=== PATIENT | male | born 1995 | race African-American/Black ===

== ENCOUNTER 2017-08-23 18:09 | Emergency (ER) | payer OTHER ==
[~2017-08-23] VITALS: Ht 177.8 cm; Wt 93.2 kg
[2017-08-23 18:26] VITALS: BP 142/70
[2017-08-23] MEDS ORDERED: PYRI1TAB5 PO (20:11)
[2017-08-23] MEDS ORDERED: PHENAZOPYRIDINE 100 MG TAB PO ONE (20:15)
== END 2017-08-23 20:22 | disposition home or self-care (01) ==
LOC: M ED 18:09
DX: N34.2 Other urethritis (principal)